=== PATIENT | female | born 1975 | race African-American/Black ===

== ENCOUNTER 2018-09-27 12:07 | Emergency (ER) | payer SELFPAY ==
[2018-09-27 12:11] VITALS: BP 156/90
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
== END 2018-09-27 13:01 | disposition home or self-care (01) ==
LOC: ER 12:07
DX: M25.561 Pain in right knee (principal); M17.11 Unilateral primary osteoarthritis, right knee; I10 Essential (primary) hypertension
CPT/HCPCS: 99283